=== PATIENT | female | born 1995 | race Caucasian/White ===

== ENCOUNTER 2017-05-15 19:33 | Emergency (ER) | payer BC ==
[2017-05-15 19:48] VITALS: BP 116/71
--- NOTE | 2017-05-15 19:52 | UC ---
Complaint Female HPI - HPI Summary HPI Summary: Patient has had two days of lower abdominal fullness, some burning with urination. has had sex recently, condom broke, has switched pills and period has been irregular. - History Of Current Complaint Stated Complaint: URINARY COMPLAINT Time Seen by Provider: 05/15/17 19:36 Hx Obtained From: Patient Hx Last Menstrual Period: 08/24/12 ?: No Onset/Duration: Sudden Onset, Lasting Days Timing: Lasting Days Severity Initially: Mild Severity Currently: Moderate Character: Burning Aggravating Factor(s): Urination - Allergies/Home Medications Allergies/Adverse Reactions: Allergies Allergy/AdvReac Type Severity Reaction Status Date / Time Penicillins Allergy Intermediate Hives Verified 05/15/17 19:48 Home Medications: Home Medications Tri Sprintec 1 tab DAILY 05/15/17 [History Confirmed 05/15/17] PMH/Surg Hx/FS Hx/Imm Hx Previously Healthy: Yes - Surgical History Surgical History: None - Family History Known Family History: Negative: Hypertension - Social History Substance Use Type: None - Immunization History Vaccination Up to Date: Yes Review of Systems Constitutional: Negative Skin: Negative Eyes: Negative ENT: Negative Respiratory: Negative Cardiovascular: Negative Gastrointestinal: Abdominal Pain Genitourinary: Dysuria, Urgency Motor: Negative Neurovascular: Negative Musculoskeletal: Negative Neurological: Negative Psychological: Negative All Other Systems Reviewed And Are Negative: Yes Physical Exam Triage Information Reviewed: Yes Appearance: Well-Appearing, Well-Nourished, Pain Distress Vital Signs Reviewed: Yes Eye Exam: Normal ENT Exam: Normal Dental Exam: Normal Neck exam: Normal Respiratory Exam: Normal Cardiovascular Exam: Normal Abdominal Exam: Normal Abdomen Description: Positive: No Organomegaly, Soft, Other: - lower abdominal fullness with palpation, neg for CVA tenderness Bowel Sounds: Positive: Present Musculoskeletal Exam: Normal Neurological Exam: Normal Psychological Exam: Normal Skin Exam: Normal Complaint Female Dx - Course Course Of Treatment: hx obtained, exam performed, meds reviewed, UA, positive for leuk, Nitrates and blood and urine HCG obtained neg - Differential Dx/Diagnosis Differential Diagnosis/HQI/PQRI: Pelvic Inflammatory Disease, Sexually Transmitted Disease, Ureteral Stone, Urinary Tract Infection Provider Diagnoses: UTI Discharge - Discharge Plan Condition: Stable Disposition: HOME Prescriptions: Cephalexin CAP* [Keflex CAP*] 500 mg PO BID #14 cap Patient Education Materials: Urinary Tract Infection in Women (ED) Additional Instructions: 1. Increase your fluid intake 2. Take the medication as prescribed. 3. Follow up with any worsening symtpoms.
== END 2017-05-15 20:07 | disposition home or self-care (01) ==
LOC: UCCORT 19:33
DX: N39.0 Urinary tract infection, site not specified (principal)
CPT/HCPCS: 81003; 84702; 87077; 87086; 87186; 99202; G0463

== ENCOUNTER 2019-11-10 12:50 | Emergency (ER) | payer BC, MEDICAID ==
[2019-11-10 14:47] VITALS: BP 122/77
--- NOTE | 2019-11-10 15:06 | UC ---
Abdominal Pain Female HPI - HPI Summary HPI Summary: Patient is24 year old , who present today to the urgent care withnausea vomiting abdominal pain since yesterday. She reports that yesterday she without any felt constipated and took milk of magnesium w/ no relief. Last night pt had emesis x1 and c/o "ball"/knot in stomach. Had two normal bowel movements today. This morning pt felt "knot in stomach" again and had emesis x4 throughout the day; last emesis 1330. Able to keep saltine crackers and water down. Took pepto today w/ no relief. Emesis is nonbilious nonbloody. 2 bowel movements were normal without any blood or mucus. She denies any headache, fever, new foods or sick contacts. She has tried to eat some saltine crackers today. Able to eat but then feels nausea is to throw up. Denies any urinary symptoms. - History of Current Complaint Chief Complaint: UCGI Stated Complaint: VOMITTING,NAUSEA Time Seen by Provider: 11/10/19 14:06 Hx Obtained From: Patient Hx Last Menstrual Period: 11/10/19 ?: No Pain Intensity: 5 Allergies/Adverse Reactions: Allergies Allergy/AdvReac Type Severity Reaction Status Date / Time Penicillins Allergy Hives Verified 11/10/19 14:39 Home Medications: Home Medications NK [No Home Medications Reported] 11/10/19 [History Confirmed 11/10/19] PMH/Surg Hx/FS Hx/Imm Hx - Additional Past Medical History Additional PMH: Past Medical History : None Past Surgical History: No Past History of Procedure Family History : non contributory Social History : Weekly alcohol, non smoker, no drug use. Works for the [employer] Previously Healthy: Yes - Surgical History Surgical History: None - Family History Known Family History: Positive: Non-Contributory Negative: Hypertension - Social History Alcohol Use: Weekly Alcohol Amount: on weekends Substance Use Type: None Smoking Status (MU): Never Smoked Tobacco - Immunization History Vaccination Up to Date: Yes Review of Systems All Other Systems Reviewed And Are Negative: Yes Constitutional: Positive: Negative Skin: Positive: Negative Eyes: Positive: Negative ENT: Positive: Negative Respiratory: Positive: Negative Cardiovascular: Positive: Negative Gastrointestinal: Positive: Abdominal Pain, Vomiting, Nausea Genitourinary: Positive: Negative Motor: Positive: Negative Neurovascular: Positive: Negative Musculoskeletal: Positive: Negative Neurological: Positive: Negative Psychological: Positive: Negative Is Patient Immunocompromised?: No Physical Exam - Summary Physical Exam Summary: Physical Exam: Const: Appears well. No signs of apparent distress present. Alert and oriented x 3. Musculo: Walks with a normal gait. Head/Face: Atraumatic, normocephalic on inspection. Eyes: EOMI and PERRLA in both eyes. Conjunctivae clear. No discharge noted ENT: Hearing normal Respiratory: Respirations are unlabored. Lungs clear to auscultation bilaterally, no wheezing , rhonchi or rales noted . CVS: Regular rate and Rhythm, S1S2 normal , no murmurs identified. Extremities: Peripheral circulation is grossly normal. Pulses 2+ Abdomen : Soft , there is tenderness to palpation which is noted in the epigastric area and right and left upper upper quadrant, nondistended , Bowel sounds are increased. There is guarding but no rebound tenderness or rigidity noted. Frias sign is positive. Skin: No lesions or rash located on the upper extremities or on the lower extremities. Neuro: Cranial nerves II to XII intact, motor and sensory intact. DTR Intact bilaterally. Mood is normal. Affect is normal. Triage Information Reviewed: Yes Vital Signs: Initial Vital Signs Temp 98 F 11/10/19 14:40 Pulse 67 11/10/19 14:40 Resp 16 11/10/19 14:40 BP 122/77 11/10/19 14:40 Pulse Ox 100 11/10/19 14:40 Vital Signs Reviewed: Yes Abd Pain Female Course/Dx - Course Course Of Treatment: During the visit today, we obtained which appeared to be consistent with cholecystitis versus peptic ulcer disease or gastroenteritis She was given 1 dose of Zofran and famotidine without any relief. Ultrasound is not available today We discussed further treatment options and recommend that patient needs additional testing, thus ER transfer advised and patient agrees. Report called to the ER provider ( Ivette Nieves NP)at [facility], advised provider of the history, physical examination, and duration of illness and labs/imaging so far and the need for definitive management. I advised her to not take anything by mouth( NPO) Patient expressed understanding and she will go to the ER via private car. Vitals stable at the time of discharge. - Differential Dx/Diagnosis Differential Diagnosis: Peptic Ulcer Disease, Other - gastroenteritis Provider Diagnosis: Abdominal pain, Cholecystitis Discharge ED - Sign-Out/Discharge Documenting (check all that apply): Patient Departure All imaging exams completed and their final reports reviewed: No Studies - Discharge Plan Condition: Stable Disposition: HOME-RECOMMEND TO ED Patient Education Materials: Acute Abdominal Pain (ED) Referrals: Gela Griffin MD [Primary Care Provider] - Additional Instructions: Please immediately go to the emergency room at [facility]. I have informed the provider there so they are aware. - Billing Disposition and Condition Condition: STABLE Disposition: Home-Recommend to ED
[2019-11-10] MEDS ORDERED: Ondansetron ODT TAB* 4 MG PO ONE (15:07)
[2019-11-10] MEDS ORDERED: Famotidine TAB* 20 MG PO ONE (15:07)
== END 2019-11-10 15:46 | disposition home health service (06) ==
LOC: UCCORT 12:50
DX: K81.9 Cholecystitis, unspecified (principal); R10.9 Unspecified abdominal pain; Z88.0 Allergy status to penicillin
CPT/HCPCS: 99212; A9270-GY; G0463